=== PATIENT | female | born 1960 | race Caucasian/White ===

== ENCOUNTER 2023-01-31 11:19 | Emergency (ER) | payer BC ==
[~2023-01-31] VITALS: Ht 167.6 cm; Wt 77.1 kg
[2023-01-31] MEDS ORDERED: LOSA100T31 PO (11:45)
[2023-01-31] MEDS ORDERED: AMLO10TA4 PO (11:45)
[2023-01-31] MEDS ORDERED: EZET1TAB26 PO (11:45)
[2023-01-31] MEDS ORDERED: SUMA50TA PO (11:45)
[2023-01-31 12:32] LABS: BASOPHILS # (AUTO) 0.2 K/UL (0.0-0.2); BASOPHILS % (AUTO) 2.3 % (0.0-2.0); EOSINOPHILS % (AUTO) 0.4 % (0.0-7.0); HEMATOCRIT 28.4 % (31.2-41.9); HEMOGLOBIN 9.7 g/dL (10.9-14.3); LYMPHOCYTES # (AUTO) 0.7 K/uL (0.8-4.8); LYMPHOCYTES % (AUTO) 6.9 % (20.5-51.5); MEAN CORPUSCULAR HEMOGLOBIN 32.2 uug (24.7-32.8); MEAN CORPUSCULAR HGB CONC 34 g/dL (32.3-35.6); MEAN CORPUSCULAR VOLUME 94.9 fL (75.5-95.3); MONOCYTES # (AUTO) 0.4 K/uL (0.1-1.30); MONOCYTES % (AUTO) 3.6 % (0.0-11.0); NEUTROPHILS # (AUTO) 8.7 K/uL (1.8-8.9); NEUTROPHILS % (AUTO) 86.8 % (38.5-71.5); PLATELET COUNT (AUTO) 296 K/uL (179-408); RED CELL DISTRIBUTION WIDTH 13.5 % (12.3-17.7)
[2023-01-31 12:54] LABS: CALCIUM 9.7 mg/dL (8.5-10.1); CARBON DIOXIDE 17 mmol/L (21-32); CHLORIDE 102 mmol/L (98-107); CREATININE 1.3 mg/dL (0.6-1.3); GLUCOSE 127 mg/dL (74-106); POTASSIUM 4.8 mmol/L (3.5-5.1); SODIUM SERUM 131 mmol/L (136-145); UREA NITROGEN, BLOOD 58 mg/dL (7-18)
[2023-01-31] MEDS: IV NORMAL SALINE 1000 ML BAG IV ONE (12:58)
[2023-01-31 13:03] LABS: ALANINE AMINOTRANSFERASE 38 U/L (14-59); ALBUMIN 3.7 g/dL (3.4-5.0); ALKALINE PHOSPHATASE 103 U/L (50-136); ASPARTATE AMINOTRANSFERASE 15 U/L (15-37); BILIRUBIN,DIRECT 0.1 mg/dL (0.0-0.2); BILIRUBIN,TOTAL 0.4 mg/dL (0.2-1.0); TOTAL PROTEIN, SERUM 7.5 g/dL (6.4-8.2)
[2023-01-31 13:08] LABS: ETHANOL < 3 MG/DL (0-10)
[2023-01-31] MEDS ORDERED: SWABABLE VALVE TRANSFER SET EA MC ONE (13:09)
[2023-01-31] MEDS ORDERED: IOHEXOL 350 100 ML INFUS..BTL ONE (13:09)
[2023-01-31] MEDS ORDERED: IV NORMAL SALINE 250 ML IV ONE (13:10)
[2023-01-31 13:19] LABS: DIFFERENTIAL COMMENT 1
[2023-01-31 13:44] LABS: MAGNESIUM 2.4 mg/dL (1.8-2.4); PHOSPHOROUS 4.7 mg/dL (2.5-4.9)
[2023-01-31 14:07] LABS: *BILIRUBIN,URIN NEGATIVE (NEGATIVE); *BLOOD, URINE NEGATIVE (NEGATIVE); *CLARITY,URINE CLEAR (CLEAR); *COLOR,URINE YELLOW (YELLOW); *KETONES,URINE NEGATIVE (NEGATIVE); *PROTEIN,URINE NEGATIVE (NEGATIVE); *UROBILINOGEN,URINE 0.2 E.U./dl (NORMAL); LEUKOCYTE ESTERASE ,URINE NEGATIVE (NEGATIVE); NITRITE, URINE NEGATIVE (NEGATIVE); PH,URINE 5.5 (5.0-8.0); UGLUCOSE NEGATIVE (NEGATIVE)
[2023-01-31 14:12] LABS: THYROID STIMULATING HORMONE 2.934 mIU/mL (0.358-3.740)
[2023-01-31 14:52] LABS: *AMPHETAMINE, URINE NEGATIVE (NEGATIVE); *BARBITURATE, URINE NEGATIVE (NEGATIVE); *BENZODIAZEPINE, URINE NEGATIVE (NEGATIVE); *CANNABINOID, URINE POSITIVE (NEGATIVE); *COCCAINE, URINE NEGATIVE (NEGATIVE); *OPIATE, URINE NEGATIVE (NEGATIVE); *PHENCYCLIDINE SCREEN,URINE NEGATIVE (NEGATIVE)
[2023-01-31 14:54] VITALS: BP 130/70; TEMP 98; O2SAT 99
[2023-01-31 15:03] LABS: FENTANYL, URINE NEGATIVE (NEGATIVE)
== END 2023-01-31 14:54 | disposition home or self-care (01) ==
LOC: ER 11:19
DX: E86.0 Dehydration (principal); R42 Dizziness and giddiness; R20.2 Paresthesia of skin; R55 Syncope and collapse; G43.909 Migraine, unspecified, not intractable, without status migrainosus; I10 Essential (primary) hypertension; E78.5 Hyperlipidemia, unspecified; Z88.5 Allergy status to narcotic agent; Z79.899 Other long term (current) drug therapy
CPT/HCPCS: 80076; 80048; 81003; 82607; 82962; 83880; 83690; 83735; 84100; 84443; 85025; 84484; 36415; 93005; 71045; 70496; 70498; 93970; 99285; 96360; 80320; 80307; 82747; 85014; Q9967; J7040; A4606; A4663; G0480